=== PATIENT | male | born 1965 | race Caucasian/White ===

== ENCOUNTER 2023-01-12 23:36 | Emergency (ER) | payer OTHER ==
[2023-01-13 00:17] LABS: APPEARANCE,URINE CLEAR (CLEAR); BILIRUBIN,URINE NEGATIVE (NEGATIVE); COLOR,URINE YELLOW; GLUCOSE,URINE NEGATIVE (NEGATIVE); KETONES,URINE NEGATIVE (NEGATIVE); LEUKOCYTE ESTERASE,URINE NEGATIVE (NEGATIVE); NITRITE,URINE NEGATIVE (NEGATIVE); OCCULT BLOOD,URINE LARGE (NEGATIVE); PH,URINE 5.5 (5.0-8.0); PROTEIN,URINE NEGATIVE (NEGATIVE); UROBILINOGEN,URINE 0.2 E.U./dL (0.2-1.0)
[2023-01-13 00:21] LABS: RBC,URINE 20-30 /HPF; SQUAMOUS EPITHELIAL CELLS,UR FEW /HPF; WBC,URINE 0-5 /HPF
[2023-01-13 00:22] LABS: MUCUS,URINE FEW /HPF
== END 2023-01-13 00:25 | disposition home or self-care (01) ==
LOC: LB.ED 23:36
DX: N20.0 Calculus of kidney (principal)
CPT/HCPCS: 81001; 99284